=== PATIENT | male | born 1965 | race Caucasian/White ===

== ENCOUNTER 2016-08-29 14:51 | Inpatient (IN) | payer MEDICAID ==
[~2016-08-29] VITALS: Ht 167.6 cm; Wt 103.4 kg
[~2016-08-29 14:51] MED LIST: ATENOLOL5 PO; L40 PO; MOTRIN800 MG PO; PRILOSEC20 MG PO; SIMVASTATIN20 MG PO; SPIRIVA18 MCG IH; TRAMADOL HCL50 MG PO; ZES20 PO
[2016-08-29 16:25] LABS: BASOPHIL % 0.3 % (0-2); PLATELET COUNT 203 x10^3mcL (130-400); RED CELL DISTRIBUTION WIDTH 13.5 % (11.5-14.5)
[2016-08-29 16:37] LABS: CALCIUM 9.3 mg/dL (8.5-10.1); CARBON DIOXIDE 23.7 mmol/L (21-32); CREATININE SERUM 1.4 mg/dL (0.7-1.3); POTASSIUM SERUM 4.4 mmol/L (3.5-5.1)
[2016-08-29 16:49] LABS: ALBUMIN 3.8 g/dL (3.4-5.0); BILIRUBIN TOTAL 0.4 mg/dL (0.20-1.00); T4(THYROXINE) 7.5 ug/dL (4.7-13.3); TOTAL PROTEIN, SERUM 7.6 g/dL (6.4-8.2)
[2016-08-29] MEDS ORDERED: PEPCID20 MG PO (18:49)
[2016-08-29] MEDS ORDERED: SINGULAIR10 MG PO (18:49)
[2016-08-29 19:21] LABS: ALBUMIN 3.8 g/dL (3.4-5.0); ALKALINE PHOSPHATASE 70 U/L (46-116); ALT/SGPT 21 U/L (16-63); AST/SGOT 14 U/L (15-37); BILIRUBIN DIRECT 0.09 mg/dL (0.0-0.2); BILIRUBIN TOTAL 0.4 mg/dL (0.20-1.00); HDL CHOLESTEROL 45 mg/dL (40-60); LACTIC DEHYDROGENASE (LDH) 162 U/L (100-190); MAGNESIUM 2.2 mg/dL (1.8-2.4); PHOSPHOROUS 3.2 mg/dL (2.5-4.9); TOTAL PROTEIN, SERUM 7.6 g/dL (6.4-8.2)
[2016-08-29 19:23] LABS: CHOLESTEROL 250 mg/dL (<200); CHOLESTEROL/HDL RATIO 5.6; TRIGLYCERIDES 656 mg/dL (<150)
[2016-08-29 19:29] LABS: T3 TOTAL 1.45 ng/mL
[2016-08-29 19:31] LABS: FREE T4 1.1 ng/dL (0.76-1.46); FREE THYROXINE INDEX 2.6 ug/dL (1.4-4.5); T4(THYROXINE) 7.5 ug/dL (4.7-13.3)
[2016-08-29 19:43] VITALS: BP 121/71
[2016-08-29 22:30] VITALS: BP 121/71
[2016-08-30 05:55] LABS: BASOPHIL % 0.4 % (0-2); PLATELET COUNT 184 x10^3mcL (130-400); RED CELL DISTRIBUTION WIDTH 13.8 % (11.5-14.5)
[2016-08-30 05:56] VITALS: BP 120/76
[2016-08-30 06:13] LABS: CARBON DIOXIDE 22.9 mmol/L (21-32); CHLORIDE SERUM 107 mmol/L (98-107); CREATININE SERUM 1.2 mg/dL (0.7-1.3); GFR1 > 60 mL/min; GLUCOSE SERUM 106 mg/dL (74-106); PHOSPHOROUS 3.8 mg/dL (2.5-4.9); POTASSIUM SERUM 4.4 mmol/L (3.5-5.1); SODIUM SERUM 140 mmol/L (136-145)
[2016-08-30 09:24] VITALS: BP 125/70
[2016-08-30 17:38] VITALS: BP 112/61
[2016-08-30 17:54] LABS: microscopic required? NO
[2016-08-30 18:32] LABS: urine erythrocyte NEGATIVE (NEGATIVE)
[2016-08-30 19:13] LABS: AMPHETAMINE QUAL UR NONE DETECTED (NEG <=1000)
[2016-08-30 22:12] VITALS: BP 114/70
[2016-08-31 06:15] VITALS: BP 125/81
[2016-08-31 06:28] LABS: CALCIUM 8.1 mg/dL (8.5-10.1); CARBON DIOXIDE 23.6 mmol/L (21-32); CHLORIDE SERUM 106 mmol/L (98-107); GFR1 > 60 mL/min; GLUCOSE SERUM 99 mg/dL (74-106); SODIUM SERUM 140 mmol/L (136-145)
[2016-08-31 06:55] LABS: BASOPHIL % 0.4 % (0-2); PLATELET COUNT 152 x10^3mcL (130-400); RED CELL DISTRIBUTION WIDTH 13.3 % (11.5-14.5)
[2016-08-31 08:40] VITALS: BP 128/71
[2016-08-31 14:12] VITALS: BP 120/78
[2016-08-31 16:50] VITALS: Ht 167.6 cm; Wt 103.4 kg
[2016-08-31 18:13] VITALS: BP 134/79
[2016-08-31 20:40] VITALS: BP 129/62
[2016-09-01 05:19] VITALS: BP 125/66
[2016-09-01 08:59] VITALS: BP 134/72
[2016-09-01 11:38] VITALS: BP 134/72
[2016-09-01] MEDS ORDERED: SIMVASTATIN10 M1 (11:58)
[2016-09-01] MEDS ORDERED: PRILOSEC OTC20 M1 PO (12:12)
[2016-09-01] MEDS ORDERED: SPIRIVA18 MC1 (12:12)
[2016-09-01] MEDS ORDERED: TENORMIN50 MG PO (12:23)
[2016-09-01 12:33] VITALS: BP 134/72
[2016-09-01 13:39] VITALS: BP 124/70
== END 2016-09-01 14:30 | disposition home or self-care (01) | DRG 227 ==
LOC: ED 14:51 → DU 18:29
PROVIDERS: Emergency Medicine; Surgery; ADMIT Family Medicine
PROC: 0WQF0ZZ Repair Abdominal Wall, Open Approach (ICD-10-PCS; principal; 2016-08-30 09:25)
DX: K42.0 Umbilical hernia with obstruction, without gangrene (principal); N17.0 Acute kidney failure with tubular necrosis; K21.9 Gastro-esophageal reflux disease without esophagitis; K57.30 Diverticulosis of large intestine without perforation or abscess without bleeding; J44.9 Chronic obstructive pulmonary disease, unspecified; R73.03 Prediabetes; G47.33 Obstructive sleep apnea (adult) (pediatric); E78.2 Mixed hyperlipidemia; I10 Essential (primary) hypertension; F10.10 Alcohol abuse, uncomplicated; F12.10 Cannabis abuse, uncomplicated; E66.9 Obesity, unspecified; Z68.36 Body mass index [BMI] 36.0-36.9, adult; Z87.891 Personal history of nicotine dependence
CPT/HCPCS: 83880; 84439; 94150; 97110-GP; 97116-GP; J0295; J0690; J1580; J2250; J2270; J3010; J3490; J7030; J7120; J7613; J7644; Q0092

== ENCOUNTER 2016-12-04 20:29 | Emergency (ER) | payer MEDICAID ==
[~2016-12-04] VITALS: Ht 167.6 cm; Wt 149.7 kg
[~2016-12-04 20:29] MED LIST changes: +PEPCID20 MG PO; +PRILOSEC OTC20 M1 PO; +SIMVASTATIN10 M1; +SINGULAIR10 MG PO; +SPIRIVA18 MC1; +TENORMIN50 MG PO
[2016-12-04 22:34] VITALS: BP 138/70
== END 2016-12-04 22:34 | disposition home or self-care (01) ==
LOC: ED 20:29
DX: M10.9 Gout, unspecified (principal); E78.00 Pure hypercholesterolemia, unspecified; I10 Essential (primary) hypertension; Z79.51 Long term (current) use of inhaled steroids
CPT/HCPCS: J1885

== ENCOUNTER 2017-03-20 08:36 | Emergency (ER) | payer MEDICAID ==
[~2017-03-20] VITALS: Ht 165.1 cm; Wt 99.8 kg
[2017-03-20 08:47] VITALS: BP 165/113; Ht 165.1 cm; Wt 99.8 kg
== END 2017-03-20 10:53 | disposition home or self-care (01) ==
LOC: ED 08:36
DX: M10.9 Gout, unspecified (principal); I10 Essential (primary) hypertension; J44.9 Chronic obstructive pulmonary disease, unspecified; E78.00 Pure hypercholesterolemia, unspecified
CPT/HCPCS: J1885; J7512